=== PATIENT | female | born 1995 | race Caucasian/White ===

== ENCOUNTER 2017-09-16 07:32 | Inpatient (IN) | payer OTHER ==
[~2017-09-16 07:32] MED LIST: PROPOFOL 200 MG INJ
[2017-09-16] MEDS ORDERED: METHYLERGONOVINE 0.2 MG INJ IM ×2 (08:00→17:00)
[2017-09-16] MEDS ORDERED: OXYTOCIN 30 UNITS/LR 500 ML IV ×3 (08:00→17:00)
[2017-09-16] MEDS ORDERED: CARBOPROST 250 MCG INJ IM ×2 (08:00→17:00)
[2017-09-16] MEDS ORDERED: MISOPROSTOL 200 MCG TAB PR ×2 (08:00→17:00)
[2017-09-16 08:44] LABS: ADD MAN DIFF? NO
[2017-09-16 08:47] LABS: WHITE BLOOD COUNT 8.9 10^3/ul (4.8-10.8)
[2017-09-16 08:47] LABS: BASOPHILS % 0.2 % (0.0-2.0); EOSINOPHILS % 0.3 % (0.0-7.0); HEMATOCRIT 35.7 % (37.0-47.0); HEMOGLOBIN 12.1 g/dl (12.0-16.0); LYMPHOCYTES # 1.8 10^3/ul (0.8-2.9); LYMPHOCYTES % 20.2 % (15.0-51.0); MEAN CORPUSCULAR HEMOGLOBIN 29.2 pg (29.0-33.0); MEAN CORPUSCULAR HGB CONC 33.9 g/dl (32.0-37.0); MEAN CORPUSCULAR VOLUME 86.2 fl (82.0-101.0); MONOCYTE # 0.5 10^3/ul (0.3-0.9); MONOCYTES % 5.7 % (0.0-11.0); NEUTROPHIL # 6.5 10^3/ul (1.6-7.5); NEUTROPHILS % 73.2 % (39.0-77.0); PLATELET COUNT 122 10^3/UL (140-415); RED BLOOD COUNT 4.14 10^6/ul (4.20-5.40); RED CELL DISTRIBUTION WIDTH 14.2 % (11.5-14.5)
[2017-09-16] MEDS: LACTATED RINGER'S 1,000 ML IV ×3 (09:03→23:00)
[2017-09-16 09:09] LABS: INR 0.91; PROTIME 12.3 Sec (11.9-14.9)
[2017-09-16 09:10] LABS: PARTIAL THROMBOPLASTIN TIME 29.2 Sec (25.0-35.0)
[2017-09-16] MEDS ORDERED: BUPIVACAINE 0.75%/DEXT (SPINAL) 2 ML INJ (12:36)
[2017-09-16] MEDS ORDERED: FENTAnyl 50 MCG/ML VIAL (12:36)
[2017-09-16] MEDS ORDERED: morphine SULFATE/PF (10 MG/10 ML) INJ (12:36)
[2017-09-16] MEDS ORDERED: PHENYLephrine (100 MCG/ML) 5ML SYG (12:36)
[2017-09-16] MEDS ORDERED: DEXAMETHASONE 4 MG/ML 1 ML INJ (13:12)
[2017-09-16] MEDS ORDERED: ONDANSETRON 4 MG INJ (13:12)
[2017-09-16] MEDS ORDERED: DIPHENHYDRAMINE 50 MG INJ (13:52)
[2017-09-16] MEDS: OXYTOCIN 30 UNITS/LR 500 ML IV ×4 (15:27→21:17)
[2017-09-16] MEDS: CEFAZOLIN 2 GM/50 ML (PMX) 50 ML IV (15:28)
[2017-09-16] MEDS ORDERED: ONDANSETRON 4 MG INJ IV (16:30)
[2017-09-16] MEDS ORDERED: DIPHENHYDRAMINE 50 MG INJ IV (16:30)
[2017-09-16] MEDS ORDERED: HYDROmorphONE 0.5 MG/0.5 ML SYG IV ×2 (16:30)
[2017-09-16] MEDS ORDERED: NALOXONE (0.4 MG/ML) INJ IV (16:30)
[2017-09-16] MEDS: KETOROLAC 30 MG INJ IV (16:59)
[2017-09-16] MEDS: LANOLIN 7 GM TUBE TOP (17:00)
[2017-09-16] MEDS: CEFAZOLIN 1 GM/50 ML (PMX) 50 ML IVPB (21:14)
[2017-09-16 22:29] LABS: RAPID PLASMA REAGIN NONREACTIVE (NR)
[2017-09-17] MEDS: OXYTOCIN 30 UNITS/LR 500 ML IV ×3 (01:44→09:38)
[2017-09-17 09:07] LABS: ADD MAN DIFF? NO
[2017-09-17 09:14] LABS: ABNORMAL IP MESSAGE 1; BASOPHILS % 0.2 % (0.0-2.0); HEMATOCRIT 31.6 % (37.0-47.0); HEMOGLOBIN 10.8 g/dl (12.0-16.0); LYMPHOCYTES # 1.8 10^3/ul (0.8-2.9); LYMPHOCYTES % 14.3 % (15.0-51.0); MEAN CORPUSCULAR HEMOGLOBIN 29.3 pg (29.0-33.0); MEAN CORPUSCULAR HGB CONC 34.2 g/dl (32.0-37.0); MEAN CORPUSCULAR VOLUME 85.9 fl (82.0-101.0); MEAN PLATELET VOLUME 13.2 fl (7.4-10.4); MONOCYTE # 0.8 10^3/ul (0.3-0.9); MONOCYTES % 6.3 % (0.0-11.0); NEUTROPHILS % 78.6 % (39.0-77.0); PLATELET COUNT 124 10^3/UL (140-415); RED BLOOD COUNT 3.68 10^6/ul (4.20-5.40); RED CELL DISTRIBUTION WIDTH 13.9 % (11.5-14.5)
[2017-09-17 09:14] LABS: WHITE BLOOD COUNT 12.7 10^3/ul (4.8-10.8)
[2017-09-17 09:21] LABS: POSITIVE DIFF @See below
[2017-09-17] MEDS: KETOROLAC 30 MG INJ IV (11:14)
[2017-09-17] MEDS ORDERED: HYDROCODONE/APAP (5/325) TAB PO (17:00)
[2017-09-17] MEDS: IBUPROFEN 600 MG TAB PO ×2 (17:07→23:32)
[2017-09-17] MEDS: SENNA/DOCUSATE NA (8.6MG/50MG) TAB PO (20:17)
[2017-09-17] MEDS: OXYCODONE/ACETAMINOPHEN (5/325) TAB PO (20:17)
[2017-09-18] MEDS: OXYCODONE/ACETAMINOPHEN (5/325) TAB PO ×3 (00:30→21:43)
[2017-09-18] MEDS: IBUPROFEN 600 MG TAB PO ×4 (05:32→23:34)
[2017-09-18] MEDS: SENNA/DOCUSATE NA (8.6MG/50MG) TAB PO ×2 (09:08→21:42)
[2017-09-18] MEDS: NA PHOSPHATE/BIPHOS 133 ML ENEMA PR (17:03)
[2017-09-19] MEDS: HYDROCODONE/APAP (5/325) TAB PO (01:05)
[2017-09-19] MEDS: IBUPROFEN 600 MG TAB PO ×2 (05:36→12:09)
[2017-09-19] MEDS: DIPHTH/TET/ACEL PERTUSS (ADULT) 0.5 ML VIAL IM* (09:00)
[2017-09-19] MEDS: SENNA/DOCUSATE NA (8.6MG/50MG) TAB PO (09:00)
== END 2017-09-19 16:40 | disposition home or self-care (01) | DRG 766 ==
LOC: L-D 07:32 → PP1 16:26
PROVIDERS: Obstetrics & Gynecology
PROC: 10D00Z1 Extraction of Products of Conception, Low, Open Approach (ICD-10-PCS; principal; 2017-09-16 07:30)
DX: O34.211 Maternal care for low transverse scar from previous cesarean delivery (principal); Z3A.39 39 weeks gestation of pregnancy; O69.81X0 Labor and delivery complicated by cord around neck, without compression, not applicable or unspecified; Z37.0 Single live birth
CPT/HCPCS: 85025; 85610; 85730; 86592; 86850; 86900; 86901; 88307; 94760; 99464